=== PATIENT | male | born 1965 | race Caucasian/White ===

== ENCOUNTER 2017-03-06 23:13 | Emergency (ER) | payer SELFPAY ==
--- NOTE | 2017-03-07 01:12 | ED CLINICAL REPORT ---
Clinical Report - Physicians/Mid Levels [facility] [address] [place] [address] 03/06/2017 23:15 Patient: FABIEN MARES Time Seen: 00:14. Arrived- By private vehicle. Historian- patient. HISTORY OF PRESENT ILLNESS Chief Complaint: LESION and TENDER AREA. This started several months ago and is still present. It was gradual in onset and has been waxing/waning. It is described as itchy and painful. It has been located on the face, right upper extremity and left upper extremity. Similar symptoms previously: Once. REVIEW OF SYSTEMS No fever, chills, cough, difficulty breathing or abdominal pain. PAST HISTORY PCP: None. SOCIAL HISTORY History of drug use "Remote exposure": cocaine, methamphetamines. ADDITIONAL NOTES The nursing notes have been reviewed. PHYSICAL EXAM Vital Signs: 03/07/2017 01:18 BP: 146/71. HR: 68. RR: 16. O2 saturation: 99%. Pain level now: 0/10. 03/06/2017 23:24 BP: 139/99. HR: 86. RR: 18. O2 saturation: 96%. Temp: 98.1 F. Pain level now: 10/10. Appearance: No acute distress. Anxious. Eyes: Conjunctivae and eyelids normal. Respiratory: No respiratory distress. Breath sounds normal. Chest nontender. Abdomen: Nontender. Skin: Rash present on the trunk and face. Rash present on the right upper extremity. Rash present on the right lower extremity. The rash is macular and circular. No weeping or crusting. (There are superficial areas denuded of skin.). Extremities: Extremities nontender. LABS, X-RAYS, AND EKG Laboratory Tests: Urine Drug Screen: (LOVE: 03/07/2017 00:20) ( MsgRcvd 03/07/2017 00:43) Final results Test Result Flag Units (Reference) AMPHETAMINE/METHAMPHETAMINE POSITIVE H (NEGATIVE) BARBITURATE NEGATIVE (NEGATIVE) BENZODIAZEPINE POSITIVE H (NEGATIVE) CANNABINOID POSITIVE H (NEGATIVE) COCAINE POSITIVE H (NEGATIVE) ECSTASY POSITIVE H (NEGATIVE) METHADONE NEGATIVE (NEGATIVE) OPIATE NEGATIVE (NEGATIVE) The urine drug screen is a qualitative screening test fordrug overdose and abuse. All screen results should beconsidered as presumptive.Drugs screened for are as follows:BenzodiazepinesCocaineAmphetamines/MetamphetaminesTHC (Tetrahydrocannabinol)OpiatesBarbituratesEcstasyMethadonePositive results are unconfirmed. For confirmation, notifythe lab for the specimen to be sent to the reference lab.All confirmations must be performed by a differentmethodology.The ingestion of natural herbal and plant productscontaining Ephedra/Ephedra metabolites can produce in urineone or more substances capable of cross reacting withamphetamine/methamphetamine immunoassays. These testsprovide a preliminary result only. A more specificalternative chemical method must be used to obtain aconfirmed analytical result. . PROGRESS AND PROCEDURES Course of Care: I have seen similar jaimes on individuals with "picking" from methamphetamine. UA is positive for meth. There is a small chance it could be impetigo. That is far less likely. Disposition: Discharged. Condition: stable. CLINICAL IMPRESSION Skin rash (probably from methamphetamine). Possible impetigo INSTRUCTIONS (THERE IS METH IN YOUR SYSTEM GET METH OUT OF YOUR SYSTEM AND IT WILL IMPROVE YOUR SKIN PUT ANTIBIOTIC OINTMENT ON THE SORES -NEOSPORIN ETC). Prescription Medications: Zithromax 250 mg tablets: take 2 orally today, followed by 1 daily for the next 4 days. No refills. Substitution is permissible. Understanding of the discharge instructions verbalized by patient. Follow-up with: [facility], , , [address], , [place], [address] Follow up. Reason for referral: ESTABLISH PRIMARY CARE. (Electronically signed by Abel Valera MD 03/09/2017 12:46)
--- NOTE | 2017-03-07 01:12 | ED ORDER SUMMARY ---
..... Patient: FABIEN MARES OrderSheet [facility] VisitID: [id number] [address] [place] [address] 51y, M Registration Date/Time: 03/06/2017 ORDER SHEET Weight: 99.7 kg Allergies: Penicillin GENERAL ORDERS: Urine Drug Screen Urgent (00:21 03/07/2017 Tad MAN) (0:25 TBlucio R.N.) MEDICATION ORDERS: IV FLUIDS: ORDER SHEET NOTES: [Electronically signed by Babs Vaughan R.N. (03/07/2017)] [Electronically signed by Abel Valera MD (12:46 03/09/2017)] [Electronically locked/signed by Babs Vaughan R.N. (03/07/2017)]
--- NOTE | 2017-03-07 01:12 | ED NURSING NOTES ---
Clinical Report - Nurses [facility] [address] [place] [address] 03/06/2017 23:15 Patient: FABIEN MARES TRIAGE Triage time 23:24. Acuity: LEVEL 4. Chief Complaint: ITCHING and RASH. --23:27 TonyaB, R.N. 23:24 03/06/17. BP: 139/99. HR: 86. RR: 18. O2 saturation: 96%. Temp: 98.1 F. Pain level now: 07/28. --23:27 TonyaB, R.N. Weight: 99.7 kg. Height/Length: 68 inches. BMI: 33.4. --23:26 TonyaB, R.N. Medications None. --23:25 TondorisB, R.N. Allergies Penicillin. --23:25 TonyaB, R.N. History Arrived by private vehicle. Historian: patient. Onset. (3 months). 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 PAST MEDICAL HX: Immunizations: up-to-date. SOCIAL HX: Never smoker. Occasional alcohol use. History of occasional drug use: marijuana. No infectious disease exposure. SELF HARM ASSESSMENT: A self harm assessment was performed. The patient answered "no" to the question "Have you recently felt down, depressed, or hopeless?", "Have you noticed less interest or pleasure in doing things?", "Do you have thoughts of harming or killing yourself?", "Are you here because you tried to hurt yourself?", "Have you ever tried to hurt yourself before today?", "Have you recently had thoughts about harming or killing others?" and "Do you have any dangerous items in your possession?". FALL RISK ASSESSMENT: Fall risk assessment completed. No fall risk identified. NUTRITIONAL RISK ASSESSMENT: The nutritional risk assessment revealed no deficiencies. FUNCTIONAL ASSESSMENT: Functional assessment: no impairments noted. LEARNING NEEDS ASSESSMENT: The learning needs assessment revealed no barriers. ABUSE ASSESSMENT: Abuse assessment: The patient was asked "Do you feel safe in your home?". SKIN INTEGRITY ASSESSMENT: Skin integrity risk assessment completed. No skin integrity risk identified. --:27 Tejinder Andrade PROBLEMS: Chest Pain. Gastroesophageal Reflux. Immunizations. --:25 Tejinder Andrade ADDITIONAL SURGERIES: no known surgeries. Interventions ID band on patient. To treatment room. --: Tejinder Andrade PHYSICAL ASSESSMENT Ambulatory to room. GENERAL / NEURO / PSYCH: Alert. Oriented X 4. Appears in no acute distress. HEENT: Pupils equal, round and reactive to light. No facial asymmetry noted. Mucous membranes are pink. RESPIRATORY: Respirations not labored. Chest nontender. Breath sounds within normal limits. CVS: Normal sinus rhythm noted. Capillary refill less than 2 seconds. Pulses within normal limits. GI / : Abdomen soft and nontender and normal bowel sounds. SKIN: Skin is warm and dry. Skin rash. --: Tejinder Andrade NURSING PROGRESS NOTES Patient gowned. Patient identifiers checked. Call light placed in reach. Side rails up x 1. Bed placed in lowest position. Brakes of bed on. --: Tejinder Andrade DISPOSITION / DISCHARGE Departure time: 01:19. Condition at departure: improved. No learning barriers present. Discharge instructions provided and reviewed with the patient. Reviewed medication(s) side effects, precautions, dosing and course information. Prescription(s) given to the patient. Patient verbalized understanding. Written instructions provided in [place]. No warning instructions, treatment instructions, referrals given to the patient, diet instructions or activity restrictions. No note given, follow up contact number given or stop smoking instructions. The patient was discharged by the physician. He was discharged home. He left the Emergency Department ambulatory and via private vehicle. Patient driving. FALL RISK ASSESSMENT: Fall risk assessment completed. No fall risk identified. --01:19 Tejinder Andrade 01:18 03/07/17. BP: 146/71. HR: 68. RR: 16. O2 saturation: 99%. Temp: deferred. Pain level now: 0/10. --01:19 Tejinder Andrade Locked/Released at 03/07/2017 1:19 by Tejinder Andrade
--- NOTE | 2017-03-07 01:12 | ED CLINICAL REPORT ---
Clinical Report - Physicians/Mid Levels [facility] [address] [place] [address] 03/06/2017 23:15 Patient: FABIEN MARES Time Seen: 00:14. Arrived- By private vehicle. Historian- patient. HISTORY OF PRESENT ILLNESS Chief Complaint: LESION and TENDER AREA. This started several months ago and is still present. It was gradual in onset and has been waxing/waning. It is described as itchy and painful. It has been located on the face, right upper extremity and left upper extremity. Similar symptoms previously: Once. REVIEW OF SYSTEMS No fever, chills, cough, difficulty breathing or abdominal pain. PAST HISTORY PCP: None. SOCIAL HISTORY History of drug use "Remote exposure": cocaine, methamphetamines. ADDITIONAL NOTES The nursing notes have been reviewed. PHYSICAL EXAM Vital Signs: 03/07/2017 01:18 BP: 146/71. HR: 68. RR: 16. O2 saturation: 99%. Pain level now: 0/10. 03/06/2017 23:24 BP: 139/99. HR: 86. RR: 18. O2 saturation: 96%. Temp: 98.1 F. Pain level now: 10/10. Appearance: No acute distress. Anxious. Eyes: Conjunctivae and eyelids normal. Respiratory: No respiratory distress. Breath sounds normal. Chest nontender. Abdomen: Nontender. Skin: Rash present on the trunk and face. Rash present on the right upper extremity. Rash present on the right lower extremity. The rash is macular and circular. No weeping or crusting. (There are superficial areas denuded of skin.). Extremities: Extremities nontender. LABS, X-RAYS, AND EKG Laboratory Tests: Urine Drug Screen: (LOVE: 03/07/2017 00:20) ( MsgRcvd 03/07/2017 00:43) Final results Test Result Flag Units (Reference) AMPHETAMINE/METHAMPHETAMINE POSITIVE H (NEGATIVE) BARBITURATE NEGATIVE (NEGATIVE) BENZODIAZEPINE POSITIVE H (NEGATIVE) CANNABINOID POSITIVE H (NEGATIVE) COCAINE POSITIVE H (NEGATIVE) ECSTASY POSITIVE H (NEGATIVE) METHADONE NEGATIVE (NEGATIVE) OPIATE NEGATIVE (NEGATIVE) The urine drug screen is a qualitative screening test fordrug overdose and abuse. All screen results should beconsidered as presumptive.Drugs screened for are as follows:BenzodiazepinesCocaineAmphetamines/MetamphetaminesTHC (Tetrahydrocannabinol)OpiatesBarbituratesEcstasyMethadonePositive results are unconfirmed. For confirmation, notifythe lab for the specimen to be sent to the reference lab.All confirmations must be performed by a differentmethodology.The ingestion of natural herbal and plant productscontaining Ephedra/Ephedra metabolites can produce in urineone or more substances capable of cross reacting withamphetamine/methamphetamine immunoassays. These testsprovide a preliminary result only. A more specificalternative chemical method must be used to obtain aconfirmed analytical result. . PROGRESS AND PROCEDURES Course of Care: I have seen similar jaimes on individuals with "picking" from methamphetamine. UA is positive for meth. There is a small chance it could be impetigo. That is far less likely. Disposition: Discharged. Condition: stable. CLINICAL IMPRESSION Skin rash (probably from methamphetamine). Possible impetigo INSTRUCTIONS (THERE IS METH IN YOUR SYSTEM GET METH OUT OF YOUR SYSTEM AND IT WILL IMPROVE YOUR SKIN PUT ANTIBIOTIC OINTMENT ON THE SORES -NEOSPORIN ETC). Prescription Medications: Zithromax 250 mg tablets: take 2 orally today, followed by 1 daily for the next 4 days. No refills. Substitution is permissible. Understanding of the discharge instructions verbalized by patient. Follow-up with: [facility], , , [address], , [place], [address] Follow up. Reason for referral: ESTABLISH PRIMARY CARE. (Electronically signed by Abel Valera MD 03/09/2017 12:46)
--- NOTE | 2017-03-07 01:12 | ED NURSING NOTES ---
Clinical Report - Nurses [facility] [address] [place] [address] 03/06/2017 23:15 Patient: FABIEN MARES TRIAGE Triage time 23:24. Acuity: LEVEL 4. Chief Complaint: ITCHING and RASH. --23:27 TonyaB, R.N. 23:24 03/06/17. BP: 139/99. HR: 86. RR: 18. O2 saturation: 96%. Temp: 98.1 F. Pain level now: 07/28. --23:27 TonyaB, R.N. Weight: 99.7 kg. Height/Length: 68 inches. BMI: 33.4. --23:26 TonyaB, R.N. Medications None. --23:25 TondorisB, R.N. Allergies Penicillin. --23:25 TonyaB, R.N. History Arrived by private vehicle. Historian: patient. Onset. (3 months). 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 PAST MEDICAL HX: Immunizations: up-to-date. SOCIAL HX: Never smoker. Occasional alcohol use. History of occasional drug use: marijuana. No infectious disease exposure. SELF HARM ASSESSMENT: A self harm assessment was performed. The patient answered "no" to the question "Have you recently felt down, depressed, or hopeless?", "Have you noticed less interest or pleasure in doing things?", "Do you have thoughts of harming or killing yourself?", "Are you here because you tried to hurt yourself?", "Have you ever tried to hurt yourself before today?", "Have you recently had thoughts about harming or killing others?" and "Do you have any dangerous items in your possession?". FALL RISK ASSESSMENT: Fall risk assessment completed. No fall risk identified. NUTRITIONAL RISK ASSESSMENT: The nutritional risk assessment revealed no deficiencies. FUNCTIONAL ASSESSMENT: Functional assessment: no impairments noted. LEARNING NEEDS ASSESSMENT: The learning needs assessment revealed no barriers. ABUSE ASSESSMENT: Abuse assessment: The patient was asked "Do you feel safe in your home?". SKIN INTEGRITY ASSESSMENT: Skin integrity risk assessment completed. No skin integrity risk identified. --:27 Tejinder Andrade PROBLEMS: Chest Pain. Gastroesophageal Reflux. Immunizations. --:25 Tejinder Andrade ADDITIONAL SURGERIES: no known surgeries. Interventions ID band on patient. To treatment room. --: Tejinder Anrdade PHYSICAL ASSESSMENT Ambulatory to room. GENERAL / NEURO / PSYCH: Alert. Oriented X 4. Appears in no acute distress. HEENT: Pupils equal, round and reactive to light. No facial asymmetry noted. Mucous membranes are pink. RESPIRATORY: Respirations not labored. Chest nontender. Breath sounds within normal limits. CVS: Normal sinus rhythm noted. Capillary refill less than 2 seconds. Pulses within normal limits. GI / : Abdomen soft and nontender and normal bowel sounds. SKIN: Skin is warm and dry. Skin rash. --: Tejinder Andrade NURSING PROGRESS NOTES Patient gowned. Patient identifiers checked. Call light placed in reach. Side rails up x 1. Bed placed in lowest position. Brakes of bed on. --: Tejinder Andrade DISPOSITION / DISCHARGE Departure time: 01:19. Condition at departure: improved. No learning barriers present. Discharge instructions provided and reviewed with the patient. Reviewed medication(s) side effects, precautions, dosing and course information. Prescription(s) given to the patient. Patient verbalized understanding. Written instructions provided in [place]. No warning instructions, treatment instructions, referrals given to the patient, diet instructions or activity restrictions. No note given, follow up contact number given or stop smoking instructions. The patient was discharged by the physician. He was discharged home. He left the Emergency Department ambulatory and via private vehicle. Patient driving. FALL RISK ASSESSMENT: Fall risk assessment completed. No fall risk identified. --01:19 Tejinder Andrade 01:18 03/07/17. BP: 146/71. HR: 68. RR: 16. O2 saturation: 99%. Temp: deferred. Pain level now: 0/10. --01:19 Tejinder Andrade Locked/Released at 03/07/2017 1:19 by Tejinder Andrade
--- NOTE | 2017-03-07 01:12 | ED ORDER SUMMARY ---
..... Patient: FABIEN MARES OrderSheet [facility] VisitID: [id number] [address] [place] [address] 51y, M Registration Date/Time: 03/06/2017 ORDER SHEET Weight: 99.7 kg Allergies: Penicillin GENERAL ORDERS: Urine Drug Screen Urgent (00:21 03/07/2017 Tad MAN) (0:25 TBlucio R.N.) MEDICATION ORDERS: IV FLUIDS: ORDER SHEET NOTES: [Electronically signed by Babs Vaughan R.N. (03/07/2017)] [Electronically signed by Abel Valera MD (12:46 03/09/2017)] [Electronically locked/signed by Babs Vaughan R.N. (03/07/2017)]
--- NOTE | 2017-03-09 12:46 | ED MED RECONCILIATION SUMMARY ---
Patient: FABIEN MARES Medication Reconciliation Report [facility] VisitID: [id number] [address] [place] [address] 51y, M Registration Date/Time: 03/06/2017 Weight: 99.7 kg Height/Length: 68 in. BMI: 33.4 ALLERGIES: Penicillin The patient's Home Medications are listed below: NONE. The source(s) of the original Home Medication information: Not obtained. The following Medications were given to the patient in the Emergency Department: None. The following Medications were prescribed to the patient: Zithromax 250 mg tablets: take 2 orally today, followed by 1 daily for the next 4 days. No refills. Substitution is permissible. -- Abel Valera MD
--- NOTE | 2017-03-09 12:46 | ED MAR SUMMARY ---
..... Medication Administration Record [facility] [address] [place], [place] [id number] Patient: FABIEN MARES Visit ID: [id number] 51y, M Weight: 99.7 kg Height/Length: 68 in BMI: 33.4 ALLERGIES: Penicillin
--- NOTE | 2017-03-09 12:46 | ED MED RECONCILIATION SUMMARY ---
Patient: FABIEN MARES Medication Reconciliation Report [facility] VisitID: [id number] [address] [place] [address] 51y, M Registration Date/Time: 03/06/2017 Weight: 99.7 kg Height/Length: 68 in. BMI: 33.4 ALLERGIES: Penicillin The patient's Home Medications are listed below: NONE. The source(s) of the original Home Medication information: Not obtained. The following Medications were given to the patient in the Emergency Department: None. The following Medications were prescribed to the patient: Zithromax 250 mg tablets: take 2 orally today, followed by 1 daily for the next 4 days. No refills. Substitution is permissible. -- Abel Valera MD
--- NOTE | 2017-03-09 12:46 | ED DISCHARGE INSTRUCTIONS ---
Patient: FABIEN MARES General Instructions [facility] VisitID: [id number] [address], [place] [address] 51y, M Registration Date/Time: 03/06/2017 Skin rash (probably from methamphetamine). INSTRUCTIONS (THERE IS METH IN YOUR SYSTEM GET METH OUT OF YOUR SYSTEM AND IT WILL IMPROVE YOUR SKIN PUT ANTIBIOTIC OINTMENT ON THE SORES -NEOSPORIN ETC). Prescription Medications: Zithromax 250 mg tablets: take 2 orally today, followed by 1 daily for the next 4 days. No refills. Substitution is permissible. Understanding of the discharge instructions verbalized by patient. Follow-up with: [facility], , , [address], [place], [address] Follow up. Reason for referral: ESTABLISH PRIMARY CARE. ADDITIONAL INFORMATION Dermatitis (Non-Specific) Dermatitis is an inflammation of the skin. The exact cause of your rash is not certain. However, this rash does not appear to be an infection or contagious illness. Taking care of the rash at home should help relieve your symptoms. Home Care: Keep the areas of rash clean by washing it daily. This also helps to keep the skin moist. Use a neutral pH soap such as Dove or Lever 2000. Apply a moisturizing lotion after bathing to prevent dry skin. Avoid skin irritants (wool or silk clothing, grease, oils, some medicines, harsh soaps, and detergents). Wear absorbent, soft fabrics next to the skin rather than rough or scratchy materials. Unless another medicine was prescribed, you may use Hydrocortisone cream (which you can get without a prescription) to reduce the inflammation. Follow Up: Make an appointment with your doctor in the next 1 to 2 weeks if your symptoms do not improve with the above measures. Get Prompt Medical Attention if any of the following occur: Increasing area of redness or pain in the skin Yellow crusts or drainage from the rash Joint pain New rash that appears in other areas of the body Fever of 100.4F (38C) or higher, or as directed by your healthcare provider Impetigo Impetigo is the name for a bacterial infection of the skin. It is common in children. It may start as an infected insect bite or scratch and spread rapidly to other areas of the body. It is contagious and can be given to other children by touching. The sores usually have a almanza brown crust and grow gradually larger as they spread. Impetigo requires treatment with an antibiotic. Home care The following guidelines will help you care for your infection at home: Trim fingernails and cover sores with an adhesive bandage if necessary to prevent scratching. Picking at the sores may leave a scar. Wash hands (yours and your child's) often. This will avoid spreading the infection to other parts of the body and to other children. Do not let your child share washcloths, towels, pillows, sheets, or clothes with others. Wash these items in hot water before using again. The sores should be washed three times a day with soap and water. Use a washcloth to scrub the sores and remove the crust. Then apply an antibacterial cream as directed. If antibiotic pills or liquid was prescribed, be sure your child takes all the medicine until it is gone. Your child should stay out of school until completing two full days of antibiotic treatment. Use acetaminophen for fever, fussiness or discomfort, unless another medicine was prescribed. In infants over six months of age, you may use ibuprofen instead of acetaminophen. If your child has chronic liver or kidney disease or has ever had a stomach ulcer or GI bleeding, talk with your doctor before using these medicines. (Aspirin should never be used in anyone under 18 years of age who is ill with a fever. It may cause severe liver damage. Follow-up care Follow up with your doctor or this facility if the sores continue to spread after three days of treatment. It will take about 710 days to heal completely. When to seek medical care Get prompt medical attention if any of the following occur: Increasing number of sores or spreading areas of redness after two days of treatment with antibiotics Increasing swelling, or pain Fever of 100.4F (38C) oral or 101.4F (38.5C) rectal or higher, not better with fever medication Increased amounts of fluid or pus coming from the sores Unusual drowsiness, weakness, or change in behavior Loss of appetite or vomiting You have been given the following additional information: Dermatitis, Non-Specific Impetigo (Child) (Electronically signed by Abel Valera MD 03/09/2017 12:46)
--- NOTE | 2017-03-09 12:46 | ED DISCHARGE INSTRUCTIONS ---
Patient: FABIEN MARES General Instructions [facility] VisitID: [id number] [address], [place] [address] 51y, M Registration Date/Time: 03/06/2017 Skin rash (probably from methamphetamine). INSTRUCTIONS (THERE IS METH IN YOUR SYSTEM GET METH OUT OF YOUR SYSTEM AND IT WILL IMPROVE YOUR SKIN PUT ANTIBIOTIC OINTMENT ON THE SORES -NEOSPORIN ETC). Prescription Medications: Zithromax 250 mg tablets: take 2 orally today, followed by 1 daily for the next 4 days. No refills. Substitution is permissible. Understanding of the discharge instructions verbalized by patient. Follow-up with: [facility], , , [address], [place], [id number] Follow up. Reason for referral: ESTABLISH PRIMARY CARE. ADDITIONAL INFORMATION Dermatitis (Non-Specific) Dermatitis is an inflammation of the skin. The exact cause of your rash is not certain. However, this rash does not appear to be an infection or contagious illness. Taking care of the rash at home should help relieve your symptoms. Home Care: Keep the areas of rash clean by washing it daily. This also helps to keep the skin moist. Use a neutral pH soap such as Dove or Lever 2000. Apply a moisturizing lotion after bathing to prevent dry skin. Avoid skin irritants (wool or silk clothing, grease, oils, some medicines, harsh soaps, and detergents). Wear absorbent, soft fabrics next to the skin rather than rough or scratchy materials. Unless another medicine was prescribed, you may use Hydrocortisone cream (which you can get without a prescription) to reduce the inflammation. Follow Up: Make an appointment with your doctor in the next 1 to 2 weeks if your symptoms do not improve with the above measures. Get Prompt Medical Attention if any of the following occur: Increasing area of redness or pain in the skin Yellow crusts or drainage from the rash Joint pain New rash that appears in other areas of the body Fever of 100.4F (38C) or higher, or as directed by your healthcare provider Impetigo Impetigo is the name for a bacterial infection of the skin. It is common in children. It may start as an infected insect bite or scratch and spread rapidly to other areas of the body. It is contagious and can be given to other children by touching. The sores usually have a almanza brown crust and grow gradually larger as they spread. Impetigo requires treatment with an antibiotic. Home care The following guidelines will help you care for your infection at home: Trim fingernails and cover sores with an adhesive bandage if necessary to prevent scratching. Picking at the sores may leave a scar. Wash hands (yours and your child's) often. This will avoid spreading the infection to other parts of the body and to other children. Do not let your child share washcloths, towels, pillows, sheets, or clothes with others. Wash these items in hot water before using again. The sores should be washed three times a day with soap and water. Use a washcloth to scrub the sores and remove the crust. Then apply an antibacterial cream as directed. If antibiotic pills or liquid was prescribed, be sure your child takes all the medicine until it is gone. Your child should stay out of school until completing two full days of antibiotic treatment. Use acetaminophen for fever, fussiness or discomfort, unless another medicine was prescribed. In infants over six months of age, you may use ibuprofen instead of acetaminophen. If your child has chronic liver or kidney disease or has ever had a stomach ulcer or GI bleeding, talk with your doctor before using these medicines. (Aspirin should never be used in anyone under 18 years of age who is ill with a fever. It may cause severe liver damage. Follow-up care Follow up with your doctor or this facility if the sores continue to spread after three days of treatment. It will take about 710 days to heal completely. When to seek medical care Get prompt medical attention if any of the following occur: Increasing number of sores or spreading areas of redness after two days of treatment with antibiotics Increasing swelling, or pain Fever of 100.4F (38C) oral or 101.4F (38.5C) rectal or higher, not better with fever medication Increased amounts of fluid or pus coming from the sores Unusual drowsiness, weakness, or change in behavior Loss of appetite or vomiting You have been given the following additional information: Dermatitis, Non-Specific Impetigo (Child) (Electronically signed by Abel Valera MD 03/09/2017 12:46)
--- NOTE | 2017-03-09 12:46 | ED MAR SUMMARY ---
..... Medication Administration Record [facility] [address] [place], [place] [id number] Patient: FABIEN MARES Visit ID: [id number] 51y, M Weight: 99.7 kg Height/Length: 68 in BMI: 33.4 ALLERGIES: Penicillin
== END 2017-03-07 01:15 | disposition home or self-care (01) ==
LOC: ED SRH 23:13
DX: L98.9 Disorder of the skin and subcutaneous tissue, unspecified (principal)
CPT/HCPCS: 92760; 92761; 92762; 92763; 92764; 92765; 92766; 92767